=== PATIENT | female | born 2000 | race Caucasian/White ===

== ENCOUNTER 2020-11-08 21:01 | Emergency (ER) | payer BC ==
[~2020-11-08] VITALS: Ht 160 cm; Wt 68.0 kg
--- NOTE | 2020-11-08 21:08 | NUR ---
PT BIBSELF C/O BILATERAL LOWER QUANDRANT PAIN X2PM TODAY. PT AAOX4 BREATHING EVENLY AND UNLABORED. PT ATTACHED TO MONITOR AND POX. PT DENIES N/V/D OR FEVERS. PT SKIN WARM, DRY, AND INTACT. PT GIVEN BLANKET AND CALL LIGHT WITHIN REACH
[2020-11-08] MEDS: MORPHINE SULFATE INJ 2 MG/ML DISP.SYRIN IV ONE (21:30)
[2020-11-08] MEDS: ONDANSETRON HCL/PF 4 MG/2 ML VIAL IVP ONE (21:30)
[2020-11-08] MEDS: IV NS 0.9% 1,000 ML BAG IV ONE (21:30)
[2020-11-08 21:33] LABS: BASOPHILS # (AUTO) 0.1 /CMM (0.0-0.2); BASOPHILS % (AUTO) 0.8 % (0.0-2.0); EOSINOPHILS % (AUTO) 0.9 % (0.0-6.0); HEMATOCRIT 41 % (33-45); HEMOGLOBIN 13.8 g/dL (11.5-14.8); LYMPHOCYTES # (AUTO) 2.3 /CMM (0.8-4.8); LYMPHOCYTES % (AUTO) 27.5 % (20.0-44.0); MEAN CORPUSCULAR HGB CONC 34 g/dl (31.0-36.0); MEAN CORPUSCULAR VOLUME 88 fL (82-100); MONOCYTES # (AUTO) 0.5 /CMM (0.1-1.30); MONOCYTES % (AUTO) 6.5 % (2.0-12.0); NEUTROPHILS # (AUTO) 5.3 /CMM (1.8-8.9); NEUTROPHILS % (AUTO) 64.3 % (43.0-81.0); PLATELET COUNT (AUTO) 302 /CMM (150-450); WHITE BLOOD COUNT (AUTO) 8.3 K/uL (4.3-11.0)
[2020-11-08] MEDS ORDERED: ONDANSETRON HCL/PF 4 MG/2 ML VIAL ONE (21:33)
[2020-11-08] MEDS ORDERED: MORPHINE SULFATE INJ 4 MG/ML DISP.SYRIN ONE (21:34)
[2020-11-08 21:35] LABS: BILIRUBIN,URINE Negative (NEGATIVE); COLOR,URINE LIGHT YELLOW (YELLOW); LEUKOCYTE ESTERASE ,URINE Negative (NEGATIVE); NITRITE, URINE Negative (NEGATIVE); PROTEIN,URINE Negative (NEGATIVE); UGLUCOSE Negative (NEGATIVE); UROBILINOGEN,URINE 0.2 EU/dL (0.2)
[2020-11-08 21:40] LABS: CREATININE 0.8 mg/dL (0.6-1.3); POTASSIUM 3.6 mmol/L (3.5-5.1)
--- NOTE | 2020-11-08 21:40 | NUR ---
RAD AT BEDSIDE
[2020-11-08 21:47] LABS: ALBUMIN 3.9 g/dL (3.4-5.0); BILIRUBIN,DIRECT 0.1 mg/dL (0.0-0.2); BILIRUBIN,TOTAL 0.2 mg/dL (0.2-1.0); TOTAL PROTEIN, SERUM 7.7 g/dL (6.4-8.2)
[2020-11-08] MEDS ORDERED: IV NS 0.9% 250 ML IV ONE (21:47)
[2020-11-08] MEDS ORDERED: IOHEXOL-300 100 ML VIAL IV ONE (21:47)
[2020-11-08] MEDS: DICYCLOMINE HCL INJ 20 MG/2 ML AMPUL IM ONE (22:30)
[2020-11-08] MEDS ORDERED: FAMO-131 PO (22:30)
[2020-11-08] MEDS: FAMOTIDINE/PF INJ 20 MG/2 ML VIAL IV ONE (22:30)
[2020-11-08] MEDS ORDERED: DICY10CA37 PO (22:30)
[2020-11-08] MEDS ORDERED: FAMOTIDINE/PF INJ 20 MG/2 ML VIAL IV ONE (22:37)
[2020-11-08] MEDS ORDERED: DICYCLOMINE HCL INJ 20 MG/2 ML AMPUL IM ONE (22:37)
--- NOTE | 2020-11-08 22:59 | NUR ---
Patient discharged to home in stable condition. Written and verbal after care instructions given. Patient verbalizes understanding of instruction. IV removed. Catheter intact and site benign. Pressure and 4x4 applied to site. No bleeding noted. PT ambulatory with a steady gait
[2020-11-08 23:00] VITALS: BP 134/82
== END 2020-11-08 22:55 | disposition home or self-care (01) ==
LOC: ER 21:01
DX: K42.9 Umbilical hernia without obstruction or gangrene (principal); R74.8 Abnormal levels of other serum enzymes
CPT/HCPCS: 36415; 74177; 80048; 80076; 81003; 83690; 84702; 84703; 85025; 96361; 96372; 96374; 96375; 99285; J0500; J2270; J2405; J3490; J7030; J7050; Q9967

== ENCOUNTER 2020-11-11 13:11 | Emergency (ER) | payer BC ==
[~2020-11-11] VITALS: Ht 160 cm; Wt 65.8 kg
[~2020-11-11 13:11] MED LIST: DICY10CA37 PO; FAMO-131 PO
[2020-11-11] MEDS ORDERED: IV NS 0.9% 500 ML BAG IV ONE (14:00)
[2020-11-11] MEDS ORDERED: ONDANSETRON HCL/PF 4 MG/2 ML VIAL IVP ONE (14:00)
[2020-11-11] MEDS ORDERED: MORPHINE SULFATE INJ 2 MG/ML DISP.SYRIN IV ONE (14:00)
[2020-11-11] MEDS ORDERED: KETOROLAC TROMETHAMINE INJ 30 MG/ML VIAL IV ONE (14:00)
--- NOTE | 2020-11-11 14:00 | NUR ---
BIB FRIEND C/O LOWER ABDOMINAL PAIN STARTED THIS MORNING GOT DX OF UMBILICAL HERNIA LAST WEEK. PT AAOX4, VSS. RR EVEN & UNLABORED. DENIES CP, SOB, DIZZINESS, N/V AT THIS TIME. PT SEEN & EVAL'D BY DR. TIDWELL. WILL CONT TO MONITOR.
[2020-11-11 14:03] LABS: BASOPHILS % (AUTO) 0.7 % (0.0-2.0); EOSINOPHILS % (AUTO) 1.2 % (0.0-6.0); HEMATOCRIT 40 % (33-45); HEMOGLOBIN 13.5 g/dL (11.5-14.8); LYMPHOCYTES # (AUTO) 1.6 /CMM (0.8-4.8); LYMPHOCYTES % (AUTO) 24.4 % (20.0-44.0); MEAN CORPUSCULAR HGB CONC 34 g/dl (31.0-36.0); MEAN CORPUSCULAR VOLUME 89 fL (82-100); MONOCYTES # (AUTO) 0.4 /CMM (0.1-1.30); MONOCYTES % (AUTO) 5.6 % (2.0-12.0); NEUTROPHILS # (AUTO) 4.5 /CMM (1.8-8.9); NEUTROPHILS % (AUTO) 68.1 % (43.0-81.0); PLATELET COUNT (AUTO) 246 /CMM (150-450); RED BLOOD CELL COUNT(AUTO) 4.53 MIL/uL (4.0-5.2); WHITE BLOOD COUNT (AUTO) 6.7 K/uL (4.3-11.0)
[2020-11-11 14:08] LABS: CALCIUM, SERUM 9.1 mg/dL (8.5-10.1); CREATININE 0.7 mg/dL (0.6-1.3); POTASSIUM 4.1 mmol/L (3.5-5.1)
[2020-11-11] MEDS ORDERED: ONDANSETRON HCL/PF 4 MG/2 ML VIAL ONE (14:09)
[2020-11-11] MEDS ORDERED: MORPHINE SULFATE INJ 4 MG/ML DISP.SYRIN ONE (14:09)
[2020-11-11] MEDS ORDERED: KETOROLAC TROMETHAMINE INJ 30 MG/ML VIAL ONE (14:09)
[2020-11-11 14:14] LABS: BILIRUBIN,DIRECT 0.1 mg/dL (0.0-0.2); BILIRUBIN,TOTAL 0.4 mg/dL (0.2-1.0); TOTAL PROTEIN, SERUM 7.4 g/dL (6.4-8.2)
[2020-11-11 14:29] LABS: BILIRUBIN,URINE NEGATIVE (NEGATIVE); COLOR,URINE YELLOW (YELLOW); LEUKOCYTE ESTERASE ,URINE NEGATIVE (NEGATIVE); NITRITE, URINE NEGATIVE (NEGATIVE); PH,URINE 6.5 (5.0-8.0); PROTEIN,URINE NEGATIVE (NEGATIVE); UGLUCOSE NEGATIVE (NEGATIVE); UROBILINOGEN,URINE 0.2 EU/dL (0.2)
[2020-11-11] MEDS ORDERED: FAMOTIDINE/PF INJ 20 MG/2 ML VIAL IV ONE (15:00)
[2020-11-11] MEDS ORDERED: CT SWABBABLE VALVE TRANS SET 1 EA INFUS.SET MC ONE (15:04)
[2020-11-11] MEDS ORDERED: IV NS 0.9% 250 ML IV ONE (15:04)
[2020-11-11] MEDS ORDERED: IOHEXOL-300 100 ML VIAL IV ONE (15:04)
--- NOTE | 2020-11-11 16:37 | NUR ---
Patient discharged to home in stable condition. Written and verbal after care instructions given. Patient verbalizes understanding of instruction. IV removed. Catheter intact and site benign. Pressure and 4x4 applied to site. No bleeding noted.
[2020-11-11 16:38] VITALS: BP 132/71
== END 2020-11-11 16:38 | disposition home or self-care (01) ==
LOC: ER 13:25
DX: K44.9 Diaphragmatic hernia without obstruction or gangrene (principal); R11.2 Nausea with vomiting, unspecified
CPT/HCPCS: 36415; 74177; 80048; 80076; 81003; 83690; 84703; 85025; 96361; 96374; 96375; 99285; J1885; J2270; J2405; J7040; J7050; Q9967